=== PATIENT | female | born 1950 | race Caucasian/White ===

== ENCOUNTER 2018-03-27 21:49 | Emergency (ER) | payer MEDICARE, OTHER ==
[~2018-03-27] VITALS: Ht 167.6 cm; Wt 66.7 kg
--- NOTE | 2018-03-27 22:03 | NUR ---
PT SANDRA ROMERO HOME FOR C/O MIDABD PAIN, N/V, DIARRHEA X FEW DAYS, DENIES ANY HEMATOEMESIS, NO BLOOD IN STOOL. AOX4, AFEBRILE, W/ RESP EVEN & UNLABORED, DENIES ANY SOB, TACHYCARDIC, MOANING, GAURDING, ON CONTINUOUS MONITORING. PENDING FURTHER YOHANA ROMEOR MD.
--- NOTE | 2018-03-27 22:06 | NUR ---
Dr. Morton at bedside for further eval.
[2018-03-27] MEDS ORDERED: MORPHINE SULFATE INJ 4 MG/ML DISP.SYRIN ONE (22:11)
[2018-03-27] MEDS ORDERED: ONDANSETRON HCL/PF 4 MG/2 ML VIAL ONE (22:11)
[2018-03-27 22:27] LABS: BASOPHILS # (AUTO) 0.1 /CMM (0.0-0.2); HEMATOCRIT 42 % (33-45); HEMOGLOBIN 14.4 g/dL (11.5-14.8); LYMPHOCYTES # (AUTO) 1.9 /CMM (0.8-4.8); LYMPHOCYTES % (AUTO) 16.5 % (20.0-44.0); MEAN CORPUSCULAR HGB CONC 34 g/dl (31.0-36.0); MEAN CORPUSCULAR VOLUME 94 fL (82-100); MONOCYTES # (AUTO) 1.3 /CMM (0.1-1.30); MONOCYTES % (AUTO) 10.8 % (2.0-12.0); NEUTROPHILS # (AUTO) 8.2 /CMM (1.8-8.9); NEUTROPHILS % (AUTO) 70.7 % (43.0-81.0); PLATELET COUNT (AUTO) 394 /CMM (150-450); RED BLOOD CELL COUNT(AUTO) 4.47 MIL/uL (4.0-5.2); WHITE BLOOD COUNT (AUTO) 11.7 K/uL (4.3-11.0)
[2018-03-27] MEDS ORDERED: IV NS 0.9% 1,000 ML BAG IV ONE (22:30)
[2018-03-27] MEDS ORDERED: ONDANSETRON HCL/PF 4 MG/2 ML VIAL IVP ONE (22:30)
[2018-03-27] MEDS ORDERED: MORPHINE SULFATE INJ 2 MG/ML DISP.SYRIN IV ONE (22:30)
--- NOTE | 2018-03-27 22:31 | NUR ---
Pt sent to CT via [facility].
[2018-03-27 22:42] LABS: ALBUMIN 3.9 g/dL (3.4-5.0); BILIRUBIN,DIRECT 0.1 mg/dL (0.0-0.2); BILIRUBIN,TOTAL 0.4 mg/dL (0.2-1.0); CALCIUM, SERUM 9.2 mg/dL (8.5-10.1); CREATININE 0.7 mg/dL (0.6-1.3); POTASSIUM 3.7 mmol/L (3.5-5.1); TOTAL PROTEIN, SERUM 7.9 g/dL (6.4-8.2)
--- NOTE | 2018-03-27 22:42 | NUR ---
Pt back fr CT, IV flds continue to be infusing, pt lying lt side w/ resp even & unlabored, nad noted. On continuous monitoring.
--- NOTE | 2018-03-27 23:07 | NUR ---
Pt ambulatory w/ steady gait to restroom, urine obtained & sent to lab. IV flds continue to be infusing.
[2018-03-27 23:16] LABS: APPEARANCE,URINE SL CLOUDY (CLEAR); BILIRUBIN,URINE NEGATIVE (NEGATIVE); BLOOD, URINE NEGATIVE Ery/uL (NEGATIVE); COLOR,URINE YELLOW (YELLOW); KETONES,URINE NEGATIVE (NEGATIVE); LEUKOCYTE ESTERASE ,URINE 1+ (NEGATIVE); NITRITE, URINE POSITIVE (NEGATIVE); PH,URINE 6.5 (5.0-8.0); PROTEIN,URINE NEGATIVE (NEGATIVE); UGLUCOSE NEGATIVE (NEGATIVE); UROBILINOGEN,URINE 0.2 EU/dL (0.2)
[2018-03-27 23:23] LABS: RBC,URINE 0-2 /HPF (0-2)
[2018-03-27 23:24] LABS: BACTERIA,URINE Many /HPF (None Seen); CALCIUM OXALATE CRYSTALS,UR Few /HPF (None Seen); SQUAMOUS EPITHELIAL CELL,UR Few /HPF (None Seen); WBC,URINE 21-50 /HPF (0-3)
--- NOTE | 2018-03-27 23:34 | NUR ---
pt asleep in bed w/ resp even & unlabored, easily arousable w/ nad noted. On continuous monitoring.
[2018-03-27] MEDS ORDERED: LEVOFLOXACIN (750 MG) 750 MG TABLET ONE (23:48)
[2018-03-27] MEDS: LEVOFLOXACIN (750 MG) 750 MG TABLET PO SCH ×2 (23:56→23:57)
--- NOTE | 2018-03-27 23:57 | NUR ---
Dr. Morton at bedside for update on pt status w/ discharge instructions. pt ambulatory w/ steady gait, nad noted. IV removed. Catheter intact and site benign. Pressure and 4x4 applied to site. No bleeding noted.Patient discharged to home in stable condition. Patient instructed not to drive while on pain medications. pt states she will take a taxi home. Written and verbal after care instructions given. Patient verbalizes understanding of instruction.
[2018-03-27 23:58] VITALS: BP 150/97
== END 2018-03-27 23:59 | disposition home or self-care (01) ==
LOC: ER 21:50
DX: R10.84 Generalized abdominal pain (principal); N39.0 Urinary tract infection, site not specified; G89.29 Other chronic pain; R11.2 Nausea with vomiting, unspecified; G40.909 Epilepsy, unspecified, not intractable, without status epilepticus; I10 Essential (primary) hypertension; Z88.0 Allergy status to penicillin; Z88.2 Allergy status to sulfonamides
CPT/HCPCS: 36415; 71045; 74176; 80048; 80076; 81001; 83690; 85025; 87077; 87086; 87186; 96361; 96374; 96375; 99284; A4606; J2270; J2405; J7030; 81000-TC; Z7610

== ENCOUNTER 2018-06-09 23:12 | Inpatient (IN) | payer OTHER ==
[~2018-06-09] VITALS: Ht 170.2 cm; Wt 60.8 kg
[2018-06-09] MEDS ORDERED: ONDANSETRON HCL/PF - ER 4 MG/2 ML VIAL IV ONE (23:30)
[2018-06-09] MEDS ORDERED: MORPHINE SULFATE INJ 2 MG/ML DISP.SYRIN IV ONE (23:30)
--- NOTE | 2018-06-09 23:33 | NUR ---
PT BIBRA FROM HOME C/O NAUSEA/VOMITING WITH ABD PAIN X 4 HOURS. PT ON MONITOR IN BED 13 COMPLAINING OF 10/10 PAIN. WILL CONTINUE TO MONITOR.
--- NOTE | 2018-06-09 23:46 | NUR ---
PHLEB AT BEDSIDE FOR LABDRAW
[2018-06-09] MEDS ORDERED: MORPHINE SULFATE INJ 2 MG/ML DISP.SYRIN ONE (23:48)
[2018-06-09] MEDS ORDERED: ONDANSETRON HCL/PF 4 MG/2 ML VIAL ONE (23:48)
[2018-06-09 23:55] LABS: BASOPHILS % (AUTO) 0.2 % (0.0-2.0); EOSINOPHILS % (AUTO) 0.2 % (0.0-6.0); HEMATOCRIT 40 % (33-45); HEMOGLOBIN 13.3 g/dL (11.5-14.8); LYMPHOCYTES # (AUTO) 0.5 /CMM (0.8-4.8); LYMPHOCYTES % (AUTO) 2.8 % (20.0-44.0); MEAN CORPUSCULAR HGB CONC 33 g/dl (31.0-36.0); MEAN CORPUSCULAR VOLUME 93 fL (82-100); NEUTROPHILS # (AUTO) 17.3 /CMM (1.8-8.9); NEUTROPHILS % (AUTO) 87.8 % (43.0-81.0); PLATELET COUNT (AUTO) 366 /CMM (150-450); RED BLOOD CELL COUNT(AUTO) 4.27 MIL/uL (4.0-5.2); WHITE BLOOD COUNT (AUTO) 19.7 K/uL (4.3-11.0)
[2018-06-09 23:56] LABS: MONOCYTES # (AUTO) 1.8 /CMM (0.1-1.30)
[2018-06-10 00:08] LABS: CALCIUM, SERUM 9.1 mg/dL (8.5-10.1); CREATININE 0.8 mg/dL (0.6-1.3); POTASSIUM 3.7 mmol/L (3.5-5.1)
[2018-06-10 00:14] LABS: ALBUMIN 3.8 g/dL (3.4-5.0); BILIRUBIN,DIRECT 0.1 mg/dL (0.0-0.2); BILIRUBIN,TOTAL 0.5 mg/dL (0.2-1.0); TOTAL PROTEIN, SERUM 7.6 g/dL (6.4-8.2)
--- NOTE | 2018-06-10 00:47 | NUR ---
Patient is resting comfortably in bed with eyes closed. Easily aroused. VSS.
--- NOTE | 2018-06-10 01:48 | NUR ---
URINE COLLECTED AND SENT TO LAB
--- NOTE | 2018-06-10 01:53 | NUR ---
SPOKE TO SHRUTI ARREOLA () OVER THE PHONE FOR PT UPDATE. CALL BACK NUMBER [phone]
[2018-06-10] MEDS ORDERED: FLAGYL/NS RTU 500 MG/100 ML PIGGYBACK IV ONE (02:00)
[2018-06-10] MEDS ORDERED: LEVOFLOXACIN 750 MG /D5W 150ML PIGGYBACK IV ONE (02:00)
[2018-06-10 02:07] LABS: APPEARANCE,URINE CLOUDY (CLEAR); BILIRUBIN,URINE NEGATIVE (NEGATIVE); BLOOD, URINE NEGATIVE Ery/uL (NEGATIVE); COLOR,URINE YELLOW (YELLOW); KETONES,URINE NEGATIVE (NEGATIVE); LEUKOCYTE ESTERASE ,URINE NEGATIVE (NEGATIVE); NITRITE, URINE POSITIVE (NEGATIVE); PH,URINE 8.5 (5.0-8.0); PROTEIN,URINE NEGATIVE (NEGATIVE); UGLUCOSE NEGATIVE (NEGATIVE); UROBILINOGEN,URINE 0.2 EU/dL (0.2)
[2018-06-10] MEDS ORDERED: LEVOFLOXACIN 750 MG /D5W 150ML 150 ML IV ONE (02:09)
[2018-06-10] MEDS ORDERED: METRONIDAZOLE 500MG/ NS 100ML 100 ML IV ONE (02:09)
[2018-06-10 02:40] LABS: BACTERIA,URINE Many /HPF (None Seen); RBC,URINE 0-2 /HPF (0-2); SQUAMOUS EPITHELIAL CELL,UR Few /HPF (None Seen)
[2018-06-10] MEDS ORDERED: HYDR-4384 PO (03:29)
[2018-06-10] MEDS ORDERED: ATOR20TA PO (03:29)
[2018-06-10] MEDS ORDERED: LEVE500T9 PO (03:29)
--- NOTE | 2018-06-10 03:58 | NUR ---
BED 309-2
--- NOTE | 2018-06-10 04:07 | NUR ---
REPORT GIVEN TO REGINALDO BOO FOR DEBBIE
[2018-06-10 04:25] VITALS: BP 112/71
--- NOTE | 2018-06-10 04:25 | NUR ---
MS RN NOTE RECEIVED PT IN STABLE CONDITION A&O X3-4, ABLE TO MAKE NEEDS KNOWN. PT ARRIVED FROM ER VIA GURNEY ACCOMPANIED BY TRANSPORT PERSONNEL. NO SKIN CONDITIONS NOTED, BUT PT REFUSED FURTHER BODY CHECK. IV IN L HAND #20 PATENT AND INTACT. ALL BELONGINGS ACCOUNTED AND SIGNED FOR. PT CURRENTLY NPO, PT VERBALIZES UNDERSTANDING OF CURRENT DIET. ALL ORDERS NOTED AND CARRIED OUT. SAFETY MEASURES IN PLACE: BED LOW, LOCKED, UPPER RAILS UP, AND CALL LIGHT WITHIN REACH. WILL CONT TO MONITOR.
[2018-06-10 05:00] VITALS: BP 112/71
[2018-06-10] MEDS ORDERED: HYDROMORPHONE 1 MG/1 ML DISP.SYRIN IV PRN (05:00)
[2018-06-10] MEDS ORDERED: ONDANSETRON HCL/PF 4 MG/2 ML VIAL IV PRN (05:00)
[2018-06-10] MEDS ORDERED: LEVETIRACETAM (500MG) 500 MG in IV NS 0.9% 100 ML IV SCH ×2 (05:30→06:00)
[2018-06-10] MEDS ORDERED: IV D5/ 0.9% NACL 1,000 ML IV PRN (05:30)
[2018-06-10] MEDS ORDERED: LEVETIRACETAM (500MG) 500 MG/5 ML VIAL IV ONE (05:44)
--- NOTE | 2018-06-10 06:23 | NUR ---
MS RN NOTE PRN DILAUDID 1 MG IV GIVEN TO PT FOR PAIN 8/10 LOCATED IN THE ABDOMINAL AREA. PT VITALS ARE STABLE. WILL CONT TO MONITOR.
--- NOTE | 2018-06-10 06:29 | NUR ---
PT IN STABLE CONDITION A&O X3-4, ABLE TO MAKE NEEDS KNOWN. IV IN L HAND #20 PATENT AND INTACT INFUSING ORDERED MEDICATION. CURRENTLY NPO, PT VERBALIZES UNDERSTANDING OF CURRENT DIET ORDER. NO C/O PAIN. ALL ORDERS FOLLOWED PER MD. SAFETY MEASURES IN PLACE: BED LOW, LOCKED, UPPER RAILS UP, AND CALL LIGHT WITHIN REACH. WILL CONT TO MONITOR AND ENDORSE TO NEXT SHIFT FOR DEBBIE.
[2018-06-10] MEDS ORDERED: PANTOPRAZOLE 40 MG VIAL IV SCH (07:30)
[2018-06-10 07:58] LABS: BASOPHILS # (AUTO) 0.1 /CMM (0.0-0.2); BASOPHILS % (AUTO) 0.5 % (0.0-2.0); EOSINOPHILS % (AUTO) 1.4 % (0.0-6.0); HEMATOCRIT 35 % (33-45); HEMOGLOBIN 11.8 g/dL (11.5-14.8); LYMPHOCYTES % (AUTO) 9.1 % (20.0-44.0); MEAN CORPUSCULAR HGB CONC 34 g/dl (31.0-36.0); MEAN CORPUSCULAR VOLUME 93 fL (82-100); MONOCYTES # (AUTO) 1.5 /CMM (0.1-1.30); MONOCYTES % (AUTO) 13.3 % (2.0-12.0); NEUTROPHILS # (AUTO) 8.4 /CMM (1.8-8.9); NEUTROPHILS % (AUTO) 75.7 % (43.0-81.0); PLATELET COUNT (AUTO) 331 /CMM (150-450); RED BLOOD CELL COUNT(AUTO) 3.72 MIL/uL (4.0-5.2)
[2018-06-10 08:00] VITALS: BP 123/69
--- NOTE | 2018-06-10 08:00 | NUR ---
RN NOTE 0800 RECEIVED PATIENT IN BED ALERT AND ORIENTED NO ACUTE DISTRESS NOTED ,HEPLOCK TO RT HAND INFILTRATED HEPLOCK DC , AND RECITED WITH 24G TO RIGHT HAND PT C/O TOLERATED WELL PT IS NPO PER MD ORAL CARE GIVEN SR X2 UP CALL LIGHT WITHIN REACH
[2018-06-10 08:18] LABS: BILIRUBIN,TOTAL 0.3 mg/dL (0.2-1.0); CALCIUM, SERUM 8.4 mg/dL (8.5-10.1); CREATININE 0.7 mg/dL (0.6-1.3); POTASSIUM 3.5 mmol/L (3.5-5.1); TOTAL PROTEIN, SERUM 6.6 g/dL (6.4-8.2)
[2018-06-10 08:32] LABS: THYROID STIMULATING HORMONE 1.014 uIU/mL (0.358-3.74)
[2018-06-10] MEDS ORDERED: METRONIDAZOLE 500MG/ NS 100ML 500 MG in PREMIX 1 EA IV SCH (10:30)
[2018-06-10] MEDS ORDERED: LEVO750T21 PO (10:41)
[2018-06-10] MEDS ORDERED: BISACODYL SUPP (10 MG) 10 MG/SUPP.RECT SUPP.RECT RC ONE (11:00)
[2018-06-10] MEDS ORDERED: MAGNESIUM HYDROXIDE 30 ML UDC PO ONE (11:00)
[2018-06-10 16:00] VITALS: BP 105/66
[2018-06-10] MEDS ORDERED: PNEUMOCOCCAL 23-VAL P-SAC VAC 0.5 ML VIAL SQ ONE (16:00)
[2018-06-11] MEDS ORDERED: LEVOFLOXACIN 500 MG /D5W 100ML 500 MG in PREMIX 1 EA IV SCH (02:00)
== END 2018-06-10 17:30 | disposition home or self-care (01) | DRG 690 ==
LOC: ER 23:13 → MED 06-10 04:10
PROVIDERS: ADMIT Internal Medicine; ATTEND Internal Medicine
DX: N39.0 Urinary tract infection, site not specified (principal); K59.00 Constipation, unspecified; I10 Essential (primary) hypertension; G40.909 Epilepsy, unspecified, not intractable, without status epilepticus; F17.200 Nicotine dependence, unspecified, uncomplicated; E78.5 Hyperlipidemia, unspecified
CPT/HCPCS: 36415; 74018; 76705-TC; 80048-TC; 80053-TC; 80076-TC; 81000-TC; 83690-TC; 84443-TC; 85025-TC; 87081-TC; 87086-TC; 87186-TC; A4216; C9113; G0378; J1170; J1953; J1956; J2270; J2405; J3490; J7030; J7042; Q2036

== ENCOUNTER 2018-06-16 01:58 | Inpatient (IN) | payer MEDICARE, OTHER ==
[~2018-06-16] VITALS: Ht 170.2 cm; Wt 55.8 kg
[~2018-06-16 01:58] MED LIST: LEVO750T21 PO
--- NOTE | 2018-06-16 02:10 | NUR ---
PT BIBRA COMPLAINING OF ABD PAIN, +N, +V, X TODAY. PT IS AXO4. RESPIRATIONS EVEN AND UNLABORED. PT PUT ON THE MONITOR AND PULSE OX.
--- NOTE | 2018-06-16 02:22 | NUR ---
BLOOD SENT TO LAB.
[2018-06-16] MEDS ORDERED: ONDANSETRON HCL/PF 4 MG/2 ML VIAL IVP ONE (02:30)
[2018-06-16] MEDS ORDERED: IV NS 0.9% 1,000 ML BAG IV ONE (02:30)
[2018-06-16] MEDS ORDERED: MORPHINE SULFATE INJ 2 MG/ML DISP.SYRIN IV ONE (02:30)
--- NOTE | 2018-06-16 02:35 | NUR ---
XRAY AT BEDSIDE.
[2018-06-16] MEDS ORDERED: ONDANSETRON HCL/PF 4 MG/2 ML VIAL ONE ×2 (02:36→04:54)
[2018-06-16] MEDS ORDERED: MORPHINE SULFATE INJ 2 MG/ML DISP.SYRIN ONE (02:36)
--- NOTE | 2018-06-16 02:38 | NUR ---
PT AMBULATORY WITH STEADY GAIT TO BATHROOM FOR URINE SAMPLE.
--- NOTE | 2018-06-16 02:40 | NUR ---
URINE SENT TO LAB.
[2018-06-16 02:46] LABS: BASOPHILS % (AUTO) 0.3 % (0.0-2.0); EOSINOPHILS % (AUTO) 0.1 % (0.0-6.0); HEMATOCRIT 42 % (33-45); HEMOGLOBIN 14.3 g/dL (11.5-14.8); LYMPHOCYTES # (AUTO) 0.9 /CMM (0.8-4.8); LYMPHOCYTES % (AUTO) 7.1 % (20.0-44.0); MEAN CORPUSCULAR HGB CONC 34 g/dl (31.0-36.0); MEAN CORPUSCULAR VOLUME 93 fL (82-100); MONOCYTES # (AUTO) 0.5 /CMM (0.1-1.30); NEUTROPHILS # (AUTO) 11.6 /CMM (1.8-8.9); NEUTROPHILS % (AUTO) 88.5 % (43.0-81.0); PLATELET COUNT (AUTO) 435 /CMM (150-450); RED BLOOD CELL COUNT(AUTO) 4.55 MIL/uL (4.0-5.2); WHITE BLOOD COUNT (AUTO) 13.1 K/uL (4.3-11.0)
[2018-06-16 02:54] LABS: CALCIUM, SERUM 10.1 mg/dL (8.5-10.1); CARBON DIOXIDE 24 mmol/L (21-32); CHLORIDE 101 mmol/L (98-107); CREATININE 0.7 mg/dL (0.6-1.3); GLUCOSE 146 mg/dL (74-106); POTASSIUM 3.7 mmol/L (3.5-5.1); SODIUM SERUM 143 mmol/L (136-145); UREA NITROGEN, BLOOD 13 mg/dL (7-18)
[2018-06-16 03:00] LABS: ALANINE AMINOTRANSFERASE 24 U/L (12-78); ALBUMIN 4.2 g/dL (3.4-5.0); ALKALINE PHOSPHATASE 61 U/L (46-116); ASPARTATE AMINOTRANSFERASE 18 U/L (15-37); BILIRUBIN,DIRECT 0.1 mg/dL (0.0-0.2); BILIRUBIN,TOTAL 0.6 mg/dL (0.2-1.0); LIPASE 150 U/L (73-393); TOTAL PROTEIN, SERUM 8.5 g/dL (6.4-8.2)
[2018-06-16 03:00] LABS: APPEARANCE,URINE CLEAR (CLEAR); BILIRUBIN,URINE 1+ (NEGATIVE); BLOOD, URINE NEGATIVE Ery/uL (NEGATIVE); COLOR,URINE YELLOW (YELLOW); KETONES,URINE 3+ (NEGATIVE); LEUKOCYTE ESTERASE ,URINE NEGATIVE (NEGATIVE); NITRITE, URINE NEGATIVE (NEGATIVE); PROTEIN,URINE 1+ mg/dl (NEGATIVE); UGLUCOSE NEGATIVE (NEGATIVE); UROBILINOGEN,URINE 0.2 EU/dL (0.2)
[2018-06-16 03:07] LABS: BACTERIA,URINE Few /HPF (None Seen); MUCUS,URINE Few /LPF (None Seen); SQUAMOUS EPITHELIAL CELL,UR Few /HPF (None Seen)
--- NOTE | 2018-06-16 04:18 | NUR ---
[facility] CALLED FOR TEST FACILITY ENGINEER WAS PAGED.
--- NOTE | 2018-06-16 04:35 | NUR ---
PT COMPLAINING OF NAUSEA AND PAIN. ER MD AWARE.
--- NOTE | 2018-06-16 04:54 | NUR ---
CALLED [facility]. HAS BEEN PAGED
[2018-06-16] MEDS ORDERED: ONDANSETRON HCL/PF 4 MG/2 ML VIAL IV PRN (05:00)
--- NOTE | 2018-06-16 05:04 | NUR ---
REPORT GIVEN TO M/S REGINALDO REYNA FOR DEBBIE.
[2018-06-16] MEDS ORDERED: ATOR20TA PO (05:09)
[2018-06-16] MEDS ORDERED: LEVE500T9 PO (05:09)
[2018-06-16] MEDS ORDERED: ZOLPIDEM TARTRATE 5 MG TABLET PO PRN (05:30)
[2018-06-16] MEDS ORDERED: MAGNESIUM HYDROXIDE 30 ML UDC PO PRN (05:30)
[2018-06-16] MEDS ORDERED: MAG HYDROX/AL HYDROX/SIMETH 30 ML UDC PO PRN (05:30)
[2018-06-16] MEDS ORDERED: HYDROCODONE/APAP 5/325MG 1 EACH TABLET PO PRN (05:30)
[2018-06-16] MEDS ORDERED: Z GUARD REMEDY 2 OZ OINT TP PRN (05:30)
[2018-06-16] MEDS ORDERED: ACETAMINOPHEN 325 MG TABLET PO PRN (05:30)
[2018-06-16] MEDS ORDERED: IV NS 0.9% 1,000 ML IV SCH (05:30)
[2018-06-16] MEDS ORDERED: ONDANSETRON HCL/PF 4 MG/2 ML VIAL IVP PRN (05:30)
[2018-06-16] MEDS ORDERED: MORPHINE SULFATE INJ 2 MG/ML DISP.SYRIN IV PRN (05:30)
--- NOTE | 2018-06-16 05:30 | NUR ---
ADMISSION NOTES: RECEIVED REPORT FROM GEORGIE HAIR. PT BROUGHT TO THE UNIT VIA GURNEY, A/O X3 ON RA RESPIRATION EVEN AND UNLABORED, IV ACCESS PATENT AND FLUSHING WELL, ON HL. PT C/O ABDOMINAL PAIN AND CHEST PAIN DUE TO VOMITING PT DESCRIBED/CLAIMED IT. ORIENTED PT TO UNIT POLICY AND HOURLY ROUNDING, USE OF CALL LIGHT. SKIN ASSESSMENT PERFORMED,ONLY BRUISE ON HANDS/ARMS NOTED. INVENTORY OF BELONGING COMPLETED BY NATALIA FINK, CONFISCATED CIGARETTE. VS TAKEN AND RECORDED. DUE MEDS ADMINISTERED. SAFETY PRECAUTIONS FOR FALL INITIATED, CALL LIGHT IN REACH WILL CONTINUE MONITORING PT.
--- NOTE | 2018-06-16 05:50 | NUR ---
PRN MORPHINE: PT C/O ABDOMINAL AND CHEST PAIN DUE TO VOMITING REQUESTING FOR PAIN MEDS, PRN MORPHINE 2MG IVP GIVEN AT THIS TIME, WILL CONTINUE TO MONITOR AND REASSESS PT.
[2018-06-16 06:00] VITALS: BP 163/88
--- NOTE | 2018-06-16 06:44 | NUR ---
RN CLOSING NOTES: PT SLEEPING AT THIS TIME, APPEARS CALM AND COMFORTABLE, EMPTY VOMIT BAG AT BED SIDE. IV ACCESS PATENT AND FLUSHING WELL INFUSING WITH NS AT 100ML/HR. RESPIRATION EVEN AND UNLABORED, ON NPO. VS STABLE, NEEDS ATTENDED. SAFETY PRECAUTIONS FOR FALL REMAINS ENGAGED, CALL LIGHT IN REACH, WILL CONTINUE MONITORING PT.
--- NOTE | 2018-06-16 07:50 | NUR ---
MS/RN OPENING NOTE PATIENT IN BED IN STABLE CONDITION. A/O X 4. NO SIGNS OF ACUTE DISTRESS. COMPLAIN OF PAIN TO ABDOMINAL AREA RATED 7/10. WILL ADMINISTER PRN PAIN MEDICATION NEEDED. NPO STATUS AT THIS TIME SECONDARY TO ABDOMEN PAIN AND N/V. ALL NEEDS ATTENDED TO. CALL LIGHT WITHIN REACH. WILL CONTINUE TO MONITOR TO ENSURE SAFETY.
[2018-06-16 08:05] VITALS: BP 174/91
--- NOTE | 2018-06-16 09:37 | NUR ---
MS/RN SPOKE WITH DR XIOMARA Quintanilla AND MADE AWARE PATIENT REQUESTING FOR MORPHINE TO BE SWITCHED TO DILAUDID SINCE PER PATIENT IT WORKS BETTER ON HER. PER DR XIOMARA AVILA MORPHINE AND START DILAUDID 0.5MG IV Q4 HR PRN. NOTED AND CARRIED OUT. PATIENT AWARE.
[2018-06-16] MEDS ORDERED: HYDROMORPHONE INJ 0.5 MG/0.5 ML SYRINGE IV PRN (10:00)
[2018-06-16 10:10] VITALS: BP 125/61
[2018-06-16] MEDS: HYDROMORPHONE 1 MG/1 ML DISP.SYRIN IV PRN ×3 (10:15→23:08)
[2018-06-16] MEDS ORDERED: BISACODYL SUPP (10 MG) 10 MG/SUPP.RECT SUPP.RECT RC ONE (15:00)
[2018-06-16] MEDS ORDERED: MINERAL OIL 133 ML (PYXIS) 1 EA ENEMA RC PRN (15:00)
[2018-06-16] MEDS ORDERED: LEVOFLOXACIN 500 MG /D5W 100ML 500 MG in PREMIX 1 EA IV SCH (16:00)
--- NOTE | 2018-06-16 16:00 | NUR ---
MS/RN SPOKE WITH DR XIOMARA Quintanilla AND NOTIFIED PATIENT NOTED WITH ELEVATED BP OF 174/91, 99 RECHECKED TWICE AND EVENING BP ALSO NOTED ELEVATED 167/87,99. [address] XIOMARA Quintanilla WILL FOLLOW UP BP AGAIN AFTER PATIENT HAS B.M. BECAUSE IT MIGHT BE ELEVATED BECAUSE OF PAIN AND CONSTIPATION. PATIENT MADE AWARE.
[2018-06-16] MEDS: LEVETIRACETAM (500MG) 500 MG in IV NS 0.9% 100 ML IV SCH (17:10)
[2018-06-16] MEDS: DOCUSATE SODIUM 250 MG CAPSULE PO SCH (17:11)
[2018-06-16] MEDS: METOCLOPRAMIDE HCL 10 MG/2 ML VIAL IV PRN (17:17)
[2018-06-16] MEDS: ENSURE ENLIVE 237 ML LIQUID (VANILLA) PO SCH (17:45)
--- NOTE | 2018-06-16 18:14 | NUR ---
MS/RN CLOSING NOTE PATIENT IN BED IN STABLE CONDITION. A/O X 3. NO SIGNS OF ACUTE DISTRESS. NO COMPLAIN OF PAIN OR DISCOMFORT AT THIS TIME. ALL NEEDS ATTENDED TO. CALL LIGHT WITHIN REACH. WILL ENDORSE TO NEXT SHIFT FOR CONTINUITY OF CARE.
--- NOTE | 2018-06-16 18:26 | NUR ---
MS/RN RECHECK BP POST BM NOTED .
[2018-06-16] MEDS: IV NS 0.9% 1,000 ML IV PRN (18:48)
--- NOTE | 2018-06-16 19:30 | NUR ---
MS/RN NOTES RECEIVED PT. LYING IN BED. PT. IS AWAKE, ALERT AND ORIENTED X4. BREATHING EVEN AND UNLABORED ON ROOM AIR. NO SOB, RESPIRATORY DISTRESS OR COMPLAINTS OF PAIN NOTED AT THIS TIME. PT. WITH RIGHT FOREARM 22 GAUGE IV SALINE LOCK PRESENT, PATENT AND INTACT. PT. WITH LEFT FOREARM 24 GAUGE PERIPHERAL IV PRESENT, PATENT AND INTACT ADMINISTERING TO PT. NS @ 100ML/HR. PT. STATED SHE JUST WENT TO THE BATHROOM AND HAD A SMALL LIQUID BOWEL MOVEMENT. BED LOCKED AND IN LOWEST POSITION, SIDE RAILS UP X2, CALL LIGHT WITHIN REACH, WILL CONTINUE TO MONITOR.
[2018-06-16 20:00] VITALS: BP 142/87
[2018-06-16 20:14] VITALS: BP 142/87
--- NOTE | 2018-06-16 21:25 | NUR ---
MS/RN NOTES SPOKE WITH HUGH BYRNE, NOTIFIED HIM PT. HAS HAD A SMALL LIQUID BOWEL MOVEMENT. PER HUGH BYRNE OK TO ADVANCE DIET TOLERATED AND ADMINISTER TO PT. PRN ENEMA. WILL CARRY OUT ORDERS. WILL CONTINUE TO MONITOR.
[2018-06-17] MEDS: LEVETIRACETAM (500MG) 500 MG in IV NS 0.9% 100 ML IV SCH (05:00)
[2018-06-17] MEDS: HYDROMORPHONE 1 MG/1 ML DISP.SYRIN IV PRN (05:01)
[2018-06-17] MEDS: METOCLOPRAMIDE HCL 10 MG/2 ML VIAL IV PRN (05:05)
[2018-06-17] MEDS: IV NS 0.9% 1,000 ML IV PRN (05:07)
--- NOTE | 2018-06-17 06:05 | NUR ---
MS/RN NOTES PT. IS LYING IN BED RESTING. BREATHING EVEN AND UNLABORED ON ROOM AIR. NO SOB, RESPIRATORY DISTRESS OR COMPLAINTS OF PAIN NOTED AT THIS TIME. PT. WITH RIGHT FOREARM 22 GAUGE IV SALINE LOCK PRESENT, PATENT AND INTACT. PT. WITH LEFT FOREARM 24 GAUGE PERIPHERAL IV PRESENT, PATENT AND INTACT ADMINISTERING TO PT. NS @ 100ML/HR. ALL PT. NEEDS MET. BED LOCKED AND IN LOWEST POSITION, SIDE RAILS UP X2, CALL LIGHT WITHIN REACH, WILL ENDORSE TO DAYSHIFT NURSE FOR CONTINUITY OF CARE.
[2018-06-17 06:26] LABS: BASOPHILS # (AUTO) 0.1 /CMM (0.0-0.2); BASOPHILS % (AUTO) 0.5 % (0.0-2.0); EOSINOPHILS % (AUTO) 0.2 % (0.0-6.0); HEMATOCRIT 39 % (33-45); HEMOGLOBIN 13.7 g/dL (11.5-14.8); LYMPHOCYTES # (AUTO) 1.3 /CMM (0.8-4.8); LYMPHOCYTES % (AUTO) 12.4 % (20.0-44.0); MEAN CORPUSCULAR HGB CONC 35 g/dl (31.0-36.0); MEAN CORPUSCULAR VOLUME 92 fL (82-100); MONOCYTES # (AUTO) 1.2 /CMM (0.1-1.30); MONOCYTES % (AUTO) 11.3 % (2.0-12.0); NEUTROPHILS % (AUTO) 75.6 % (43.0-81.0); PLATELET COUNT (AUTO) 396 /CMM (150-450); RED BLOOD CELL COUNT(AUTO) 4.28 MIL/uL (4.0-5.2); WHITE BLOOD COUNT (AUTO) 10.6 K/uL (4.3-11.0)
[2018-06-17 06:40] LABS: CALCIUM, SERUM 9.2 mg/dL (8.5-10.1); CREATININE 0.5 mg/dL (0.6-1.3); PHOSPHORUS 3.3 mg/dL (2.5-4.9); POTASSIUM 3.6 mmol/L (3.5-5.1)
--- NOTE | 2018-06-17 07:32 | NUR ---
MS/RN OPENING NOTE PATIENT IN BED IN STABLE CONDITION. A/O X 4. NO SIGNS OF ACUTE DISTRESS. NO COMPLAIN OF PAIN OR DISCOMFORT. ALL NEEDS ATTENDED TO. CALL LIGHT WITHIN REACH. WILL CONTINUE TO MONITOR TO ENSURE SAFETY.
[2018-06-17 08:00] VITALS: BP 147/108
[2018-06-17] MEDS: ENSURE ENLIVE 237 ML LIQUID (VANILLA) PO SCH ×2 (08:26→12:26)
[2018-06-17] MEDS: DOCUSATE SODIUM 250 MG CAPSULE PO SCH (08:26)
[2018-06-17] MEDS ORDERED: ATORVASTATIN 10 MG TABLET PO SCH (09:00)
--- NOTE | 2018-06-17 10:38 | NUR ---
MS/RN SPOKE WITH DR XIMOARA BYRNE AND NOTIFIED PATIENT STILL WITH NO B.M. POST ENEMA GIVEN BY COOKER TENDER RN AROUND MIDNIGHT, TOLERATING FULL LIQUIDS WELL. PER DR SOLANO PLEASE ORDER MIRALAX 17GM QD PRN. NOTED AND CARRIED OUT. PATIENT MADE AWARE.
--- NOTE | 2018-06-17 10:38 | NUR ---
MS/RN DR SOLANO ALSO MADE AWARE REGARDING PATIENT'S BP STILL NOTED ELEVATED 147/108 , [address] SOLANO WILL CONTINUE TO MONITOR AND HE WILL PUT IN ORDERS NEEDED.
[2018-06-17] MEDS ORDERED: POLYETHYLENE GLYCOL 3350 17 GM POWD.PACK PO PRN (11:00)
--- NOTE | 2018-06-17 15:15 | NUR ---
MS/PROCESS CAMERA OPERATOR PATIENT DISCHARGE HOME IN STABLE CONDITION. A/O X 4. NO SIGNS OF ACUTE DISTRESS. NO COMPLAIN OF PAIN OR DISCOMFORT. DISCHARGE EDUCATION AND TEACHINGS PROVIDED, MADE AWARE TO FOLLOW UP WITH PRIMARY PHYSICIAN WITHIN A WEEK. CONTINUE TO TAKE MEDICATIONS ORDERED, ALSO PROVIDED TEACHING ON EATING HIGH FIBER DIET. PATIENT VERBALIZED UNDERSTANDING. NAME BAND AND IV LINE REMOVED. ALL NEEDS ATTENDED TO. LEFT IN STALE CONDITION, SELF RESPONSIBLE VIA TAXI.
== END 2018-06-17 15:05 | disposition home or self-care (01) | DRG 389 ==
LOC: ER 01:58 → MED 04:35
PROVIDERS: ADMIT Hospitalist; ATTEND Hospitalist
DX: K56.7 Ileus, unspecified (principal); N39.0 Urinary tract infection, site not specified; R65.10 Systemic inflammatory response syndrome (SIRS) of non-infectious origin without acute organ dysfunction; I10 Essential (primary) hypertension; K59.00 Constipation, unspecified; G40.909 Epilepsy, unspecified, not intractable, without status epilepticus; E78.5 Hyperlipidemia, unspecified; E78.00 Pure hypercholesterolemia, unspecified
CPT/HCPCS: 36415; 74018; 80048-TC; 80061-TC; 80076-TC; 81000-TC; 83605-TC; 83690-TC; 83735-TC; 84100-TC; 84484-TC; 85025-TC; 85730-TC; 87040-TC; 87081-TC; A4216; G0378; J1170; J1953; J1956; J2270; J2405; J2765; J7030

== ENCOUNTER 2020-07-17 07:08 | Emergency (ER) | payer MEDICARE, OTHER ==
[~2020-07-17] VITALS: Ht 172.7 cm; Wt 63.5 kg
[~2020-07-17 07:08] MED LIST changes: +ATOR20TA PO; +LEVE500T9 PO; -LEVO750T21 PO
--- NOTE | 2020-07-17 07:41 | NUR ---
[id number] FROM HOME C/O GENERALIZED ABDOMINAL PAIN +HEMATURIA, +NAUSEA. THE PATIENT IS ALERT AND ORIENTED X3. DENIES SOB. RESPIRATION REGULAR AND UNLABORED. THE PATIENT IS PROVIDED WITH WARM BLANKET FOR COMFORT. WILL CONTINUE TO MONITOR.
[2020-07-17] MEDS ORDERED: HYDROMORPHONE 1 MG/1 ML DISP.SYRIN ONE ×2 (07:44→09:57)
[2020-07-17] MEDS ORDERED: METOCLOPRAMIDE HCL 10 MG/2 ML VIAL ONE (07:44)
[2020-07-17] MEDS ORDERED: ESCI20TA PO (07:44)
[2020-07-17] MEDS ORDERED: LEVE750T10 PO (07:44)
[2020-07-17] MEDS ORDERED: KETOROLAC TROMETHAMINE 15 MG/ML VIAL ONE (07:44)
[2020-07-17] MEDS: IV NS 0.9% 1,000 ML BAG IV ONE ×2 (07:50→09:04)
[2020-07-17] MEDS: METOCLOPRAMIDE HCL 10 MG/2 ML VIAL IV ONE (07:50)
[2020-07-17] MEDS: HYDROMORPHONE INJ 2 MG/ML DISP.SYRIN IV ONE (07:50)
[2020-07-17] MEDS: KETOROLAC TROMETHAMINE INJ 30 MG/ML VIAL IV ONE (07:50)
[2020-07-17 07:51] LABS: BASOPHILS # (AUTO) 0.1 /CMM (0.0-0.2); BASOPHILS % (AUTO) 0.3 % (0.0-2.0); HEMATOCRIT 42 % (33-45); HEMOGLOBIN 14.2 g/dL (11.5-14.8); LYMPHOCYTES # (AUTO) 1.4 /CMM (0.8-4.8); LYMPHOCYTES % (AUTO) 8.1 % (20.0-44.0); MEAN CORPUSCULAR HGB CONC 34 g/dl (31.0-36.0); MEAN CORPUSCULAR VOLUME 91 fL (82-100); MONOCYTES # (AUTO) 2.2 /CMM (0.1-1.30); MONOCYTES % (AUTO) 12.9 % (2.0-12.0); NEUTROPHILS # (AUTO) 13.7 /CMM (1.8-8.9); NEUTROPHILS % (AUTO) 78.7 % (43.0-81.0); PLATELET COUNT (AUTO) 403 /CMM (150-450); RED BLOOD CELL COUNT(AUTO) 4.63 MIL/uL (4.0-5.2); WHITE BLOOD COUNT (AUTO) 17.4 K/uL (4.3-11.0)
[2020-07-17 08:00] LABS: CALCIUM, SERUM 10.2 mg/dL (8.5-10.1); CREATININE 0.8 mg/dL (0.6-1.3); POTASSIUM 3.7 mmol/L (3.5-5.1)
[2020-07-17 08:07] LABS: ALBUMIN 4.4 g/dL (3.4-5.0); BILIRUBIN,DIRECT 0.1 mg/dL (0.0-0.2); BILIRUBIN,TOTAL 0.7 mg/dL (0.2-1.0); TOTAL PROTEIN, SERUM 8.9 g/dL (6.4-8.2)
[2020-07-17] MEDS ORDERED: IOHEXOL-300 100 ML VIAL IV ONE (08:27)
[2020-07-17] MEDS ORDERED: CT SWABBABLE VALVE TRANS SET 1 EA INFUS.SET MC ONE (08:27)
[2020-07-17] MEDS ORDERED: IV NS 0.9% 250 ML IV ONE (08:27)
--- NOTE | 2020-07-17 08:32 | NUR ---
THE PATIENT IS TAKEN TO RADIOLOGY DEPARTMENT.
--- NOTE | 2020-07-17 08:55 | NUR ---
THE PATIENT IS BACK FROM RADIOLOGY DEPARTMENT.
[2020-07-17] MEDS: CEFTRIAXONE 1GM BAG (ER ONLY) 1 GM/50 ML PIGGYBACK IV ONE (09:04)
[2020-07-17] MEDS ORDERED: CEFTRIAXONE 1GM BAG (ER ONLY) 50 ML IV ONE (09:07)
[2020-07-17] MEDS: HYDROMORPHONE 1 MG/1 ML DISP.SYRIN IV ONE (09:54)
[2020-07-17] MEDS: ONDANSETRON HCL/PF - ER 4 MG/2 ML VIAL IV ONE (09:54)
[2020-07-17] MEDS ORDERED: ONDANSETRON HCL/PF 4 MG/2 ML VIAL ONE (09:55)
--- NOTE | 2020-07-17 10:36 | NUR ---
URINE COLLECTED AND TAKEN IT TO THE LAB.
[2020-07-17 11:03] LABS: BILIRUBIN,URINE SMALL (NEGATIVE); COLOR,URINE YELLOW (YELLOW); LEUKOCYTE ESTERASE ,URINE Negative (NEGATIVE); NITRITE, URINE Negative (NEGATIVE); PROTEIN,URINE 100 mg/dl (NEGATIVE); UGLUCOSE Negative (NEGATIVE); UROBILINOGEN,URINE 0.2 EU/dL (0.2)
[2020-07-17 11:11] LABS: BACTERIA,URINE Few /HPF (None Seen); RBC,URINE 0-2 /HPF (0-2); SQUAMOUS EPITHELIAL CELL,UR Few /HPF (None Seen); WBC,URINE 0-2 /HPF (0-3)
--- NOTE | 2020-07-17 11:23 | NUR ---
COVID ANTIGEN TEST IS CANCELED PER DR PRATT SINCE THE PATIENT IS NOT GETTING ADMITTED.
[2020-07-17] MEDS ORDERED: METR500T PO (11:41)
[2020-07-17] MEDS ORDERED: CIPR-262 PO (11:41)
--- NOTE | 2020-07-17 11:58 | NUR ---
Patient discharged to home in stable condition. Written and verbal after care instructions given. Patient verbalizes understanding of instruction. The patient left ER in stable condition.
[2020-07-17 11:59] VITALS: BP 147/82
== END 2020-07-17 11:59 | disposition home or self-care (01) ==
LOC: ER 07:19
DX: K57.32 Diverticulitis of large intestine without perforation or abscess without bleeding (principal); R10.31 Right lower quadrant pain; R11.2 Nausea with vomiting, unspecified; I10 Essential (primary) hypertension; E78.00 Pure hypercholesterolemia, unspecified; Z88.0 Allergy status to penicillin; Z88.2 Allergy status to sulfonamides; Z79.899 Other long term (current) drug therapy
CPT/HCPCS: 36415; 74177; 80048; 80076; 81001; 83605; 83690; 84484; 85025; 85730; 87040 ×2; 87081; 87086; 96361; 96365; 96375; 96376; 99285; J0696; J1170 ×2; J1885; J2405; J2765; J7030; J7040; J7050; Q9967

== ENCOUNTER 2020-08-10 15:09 | Emergency (ER) | payer MEDICARE ==
[~2020-08-10] VITALS: Ht 170.2 cm; Wt 66.2 kg
[~2020-08-10 15:09] MED LIST changes: +CIPR-262 PO; +ESCI20TA PO; -LEVE500T9 PO; +LEVE750T10 PO; +METR500T PO
[2020-08-10] MEDS ORDERED: MORPHINE SULFATE INJ 4 MG/ML DISP.SYRIN ONE (15:28)
[2020-08-10] MEDS ORDERED: ONDANSETRON HCL/PF 4 MG/2 ML VIAL ONE ×2 (15:28→17:40)
[2020-08-10] MEDS ORDERED: KETOROLAC TROMETHAMINE 15 MG/ML VIAL ONE ×2 (15:28→17:40)
[2020-08-10] MEDS ORDERED: ONDANSETRON HCL/PF 4 MG/2 ML VIAL IVP ONE (15:30)
[2020-08-10] MEDS ORDERED: ASPIRIN 325 MG TABLET PO ONE (15:30)
[2020-08-10] MEDS ORDERED: NITROGLYCERIN 0.4 MG/TAB BOTTLE SL ONE (15:30)
[2020-08-10] MEDS ORDERED: MORPHINE SULFATE INJ 2 MG/ML DISP.SYRIN IV ONE (15:30)
[2020-08-10] MEDS ORDERED: KETOROLAC TROMETHAMINE INJ 30 MG/ML VIAL IV ONE ×2 (15:30→18:00)
[2020-08-10] MEDS ORDERED: IV NS 0.9% 1,000 ML BAG IV ONE (15:30)
[2020-08-10 15:44] LABS: BASOPHILS # (AUTO) 0.1 /CMM (0.0-0.2); BASOPHILS % (AUTO) 0.7 % (0.0-2.0); HEMATOCRIT 42 % (33-45); HEMOGLOBIN 14.4 g/dL (11.5-14.8); LYMPHOCYTES # (AUTO) 0.6 /CMM (0.8-4.8); MEAN CORPUSCULAR HGB CONC 34 g/dl (31.0-36.0); MEAN CORPUSCULAR VOLUME 94 fL (82-100); MONOCYTES # (AUTO) 0.3 /CMM (0.1-1.30); MONOCYTES % (AUTO) 3.6 % (2.0-12.0); NEUTROPHILS # (AUTO) 7.7 /CMM (1.8-8.9); NEUTROPHILS % (AUTO) 88.7 % (43.0-81.0); PLATELET COUNT (AUTO) 418 /CMM (150-450); RED BLOOD CELL COUNT(AUTO) 4.53 MIL/uL (4.0-5.2); WHITE BLOOD COUNT (AUTO) 8.7 K/uL (4.3-11.0)
--- NOTE | 2020-08-10 15:45 | NUR ---
BIBRA FROM [facility] [place] TO ER BED 5. AAOX4. NOT IN RESP DISTRESS. TRANSFER FROM [facility] TO BY WALKING. BRIOUGHT IN FOR RLQ ABD PAIN W/ NAUSEA AND VOMMITING. PT ALSO REPORTS MID CP TO PARAMEDICS, 1 SPRAY NITRO 0.4MG GIVEN AND PAIN RESOLVED. NO CP UPON ASSESSMENT BUT PT NOTED VOMMITING. MD WAS AT BEDSIDE FOR EVAL. ORDERS RECEIVED, NOTED AND CARRIED OUT. IV LINE ESATBLISHED ON L WRIST 20G, BLOOD DRAWN AND GIVEN TO PHLENB AT BEDSIDE. PT ON MOITOR
[2020-08-10 15:57] LABS: ALBUMIN 4.1 g/dL (3.4-5.0); BILIRUBIN,DIRECT 0.1 mg/dL (0.0-0.2); BILIRUBIN,TOTAL 0.4 mg/dL (0.2-1.0); TOTAL PROTEIN, SERUM 7.6 g/dL (6.4-8.2)
[2020-08-10 16:08] LABS: B-TYPE NATRIURETIC PEPTIDE 151 PG/ML (0-125); CALCIUM, SERUM 9.4 mg/dL (8.5-10.1); CARBON DIOXIDE 21 mmol/L (21-32); CHLORIDE 104 mmol/L (98-107); CREATININE 0.7 mg/dL (0.6-1.3); GLUCOSE 173 mg/dL (74-106); POTASSIUM 3.4 mmol/L (3.5-5.1); SODIUM SERUM 142 mmol/L (136-145); UREA NITROGEN, BLOOD 6 mg/dL (7-18)
[2020-08-10] MEDS ORDERED: IOHEXOL-300 100 ML VIAL IV ONE (16:28)
[2020-08-10] MEDS ORDERED: IV NS 0.9% 250 ML IV ONE (16:28)
[2020-08-10] MEDS ORDERED: CT SWABBABLE VALVE TRANS SET 1 EA INFUS.SET MC ONE (16:28)
[2020-08-10] MEDS ORDERED: ONDA4TAB11 PO (17:49)
[2020-08-10] MEDS ORDERED: IBUP-1957 PO (17:49)
[2020-08-10] MEDS ORDERED: DICY20TA11 PO (17:49)
[2020-08-10] MEDS ORDERED: ONDANSETRON HCL/PF - ER 4 MG/2 ML VIAL IV ONE (18:00)
--- NOTE | 2020-08-10 18:17 | NUR ---
Patient discharged to home in stable condition. Written and verbal after care instructions given. Patient verbalizes understanding of instruction.IV removed. Catheter intact and site benign. Pressure and 4x4 applied to site. No bleeding noted. Pt ambulatory with a steady gait
[2020-08-10 18:25] VITALS: BP 155/93
== END 2020-08-10 18:25 | disposition home or self-care (01) ==
LOC: ER 15:11
DX: R10.31 Right lower quadrant pain (principal); R11.2 Nausea with vomiting, unspecified; R07.89 Other chest pain; G40.909 Epilepsy, unspecified, not intractable, without status epilepticus; I10 Essential (primary) hypertension; E78.00 Pure hypercholesterolemia, unspecified; Z88.0 Allergy status to penicillin; Z88.2 Allergy status to sulfonamides; Z79.899 Other long term (current) drug therapy
CPT/HCPCS: 36415; 71045; 74177; 80048; 80076; 83690; 83880; 84484; 85025; 93005 ×2; 96361; 96374; 96375; 96376; 99285; J1885 ×2; J2270; J2405 ×3; J7030; J7050; Q9967